=== PATIENT | female | born 1995 | race Caucasian/White ===

== ENCOUNTER 2017-05-01 23:14 | Emergency (ER) | payer BC ==
[~2017-05-01] VITALS: Ht 165.1 cm; Wt 105.3 kg
[2017-05-01 23:16] VITALS: TEMP 36.4; Ht 165.1 cm; Wt 105.3 kg
--- NOTE | 2017-05-01 23:48 | EMERGENCY ROOM VISIT NOTE ---
History First contact with patient: 23:21 Chief Complaint: EAR PAIN Stated Complaint: BLOODY EAR AND RINGING History of Present Illness The patient is a 22 year old female who presents to the Emergency Room with complaints of an injury to the right ear. The patient states that she tripped and fell, striking her right ear on the corner of a table. She states that she sustained a laceration to the ear and it has been bleeding. She rates her discomfort a 4/10. She denies any other injuries. She denies loss of consciousness. She denies headache or nausea. Review of Systems A complete 10 point review of systems was reviewed with the patient with pertinent positives and negatives as per history of present illness. All else were negative. Social History Smoking Status: Never Smoker Current/Historical Medications No Active Prescriptions or Reported Meds Physical Exam Vital Signs Date Time Temp Pulse Resp B/P (MAP) Pulse Ox O2 Delivery O2 Flow Rate FiO2 05/01/17 23:52 90 18 128/93 98 05/01/17 23:16 36.4 94 18 136/92 98 Room Air Physical Exam VITALS: Vitals are noted on the nurse's note and reviewed by myself. Vital signs stable. GENERAL: This is a 22-year-old female, in no acute distress, nondiaphoretic, well-developed well-nourished. SKIN: There is a 2 cm non-gaping laceration to the right helix. There is no active bleeding. HEAD: Normocephalic atraumatic. EARS: External auditory canals clear, tympanic membranes pearly monteiro without erythema or effusion bilaterally. EYES: Pupils equal round and reactive to light and accommodation. NEURO: Patient was alert and oriented to person place and time. Medical Decision & Procedures Medical Decision The patient was evaluated as above. She has a small, non-gaping laceration to the helix. Dermabond was applied to the laceration. There were no other concerning findings. Conservative measures were discussed with the patient. She verbalized understanding was discharged home in good condition. Medication Reconcilliation Current Medication List: was personally reviewed by me Blood Pressure Screening Patient's blood pressure: Normal blood pressure Impression Primary Impression: Laceration of ear Departure Information Dispostion Home / Self-Care Condition GOOD Prescriptions No Active Prescriptions or Reported Meds Referrals No Doctor, Assigned (PCP) Patient Instructions ED Laceration Facial Skin Glue, My [facility] Additional Instructions The glue will fall off on its own in 3-4 days. Do not apply any ointments or lotions to the area. For pain control, you can use the following [id number] medicines (if >12 yo): - Regular strength (325mg/tab) Tylenol (acetaminophen) 2 tabs every 4-6 hours as needed. Do not exceed 12 tablets in a 24 hour period. Avoid taking more than 4 grams (4000 mg) of Tylenol per day. This includes any other sources of acetaminophen you may take on a regular basis. - Regular strength (200 mg/tab) Advil (ibuprofen) 1-2 tabs every 4-6 hours as needed. Do not exceed a dose of 3200 mg per day. Problem Qualifiers Primary Impression: Laceration of ear Encounter type: initial encounter Laterality: right Qualified Codes: S01.311A - Laceration without foreign body of right ear, initial encounter
[2017-05-01 23:52] VITALS: BP 128/93; PULSE 90; O2SAT 98
== END 2017-05-01 23:53 | disposition home or self-care (01) ==
LOC: C.EDB 23:16 → C.EDC 23:53
DX: S01.311A Laceration without foreign body of right ear, initial encounter (principal); W19.XXXA Unspecified fall, initial encounter

== ENCOUNTER 2018-03-04 20:45 | Emergency (ER) | payer BC, OTHER ==
[~2018-03-04] VITALS: Ht 165.1 cm; Wt 108.9 kg
[2018-03-04 20:51] VITALS: TEMP 36.8; Ht 165.1 cm; Wt 108.9 kg
[2018-03-04] MEDS ORDERED: IBUPROFEN 600 MG TAB PO STA (21:03)
--- NOTE | 2018-03-04 21:24 | DIAGNOSTIC IMAGING REPORT ---
R WRIST MIN 3 VIEWS ROUTINE CLINICAL HISTORY: Ronnie GALLARDO wrist pain pain COMPARISON: None. DISCUSSION: The bones and joint spaces appear intact. There is no evidence of fracture, dislocation or bony disease. Potential lucency on the AP projection traversing the distal capitate. This, however appears represent overlap artifact based on the oblique projections. No significant pronator or fat pad sign. No significant edematous change. IMPRESSION: No acute process. The above report was generated using voice recognition software. It may contain grammatical, syntax or spelling errors. Electronically signed by: Damon Lee M.D. 03/04/2018 9:23 PM Dictated Date/Time: 03/04/2018 9:22 PM
[2018-03-04 21:47] VITALS: BP 138/88; PULSE 82; O2SAT 99
--- NOTE | 2018-03-04 23:00 | EMERGENCY ROOM VISIT NOTE ---
ED Visit Note First contact with patient: 20:57 Chief Complaint: Right wrist pain. History of Present Illness: Ms. Barragan is a 22-year-old white female who ambulates into the ED complaining of right wrist pain. Historically patient reports she has had a previous left wrist fracture but does remember a right wrist injury as a child but does not remember it as a fracture. Patient reports approximately 15 minutes before she arrived in the emergency department she was standing on a chair to close a cabinet. She reports losing her balance and falling on her outstretched right hand to the ground. She reports at the time of the fall she immediately had pain in the right wrist and remembers hearing or feeling a popping sensation. Currently she is complaining of a sharp and achy pain over the distal aspect of the radius and ulna. She rates her discomfort 6/10. Her pain is nonradiating. Her pain worsens with palpation in all movements of the wrist. She has not identified any alleviating factors related to the pain. She has not taken any medications for pain prior to arrival at the hospital. Associated with her pain she reports she has a minimal discomfort in the anterior aspect of the right shoulder over the humeral head. She denies any associated elbow pain, proximal forearm pain, hand pain, finger pain, hand/finger weakness/numbness/ tingling. Review of Systems: As noted above in history of present illness. Past Medical History: As previously noted and seasonal allergies. Current Medications: Patient denies. Allergies to Medications: Sulfa. Social History: Patient is currently employed; she feels safe in her home environment; she denies tobacco use and admits to alcohol use. Physical Examination: Vital Signs: Date Time Temp Pulse Resp B/P (MAP) Pulse Ox O2 Delivery O2 Flow Rate FiO2 03/04/18 21:47 82 20 138/88 99 Room Air 03/04/18 20:51 36.8 90 18 142/99 98 Room Air GENERAL: 22-year-old female in mild distress due to pain, nontoxic-appearing, afebrile and hemodynamically stable. NEUROLOGICAL: Awake, alert and oriented to person, place and time. Answering questions appropriately and following commands. SKIN: Warm, dry and pink. No soft tissue trauma noted. RIGHT UPPER EXTREMITY: No gross bony deformity. Minimal tenderness over the anterior aspect of the humeral head without bony deformity, bony crepitus, swelling or ecchymosis. Full range of motion of the glenohumeral joint. No tenderness over the clavicle, acromion clavicular joint or scapula. No tenderness throughout the distal shaft of the humerus, elbow or proximal forearm. Mild tenderness over the distal radius and ulna without bony deformity , bony crepitus, swelling or ecchymosis. No tenderness throughout the carpals or any anatomical snuffbox. No tenderness throughout the rest of the hands or fingers. She was able to do full range of motion in pronation and supination of the forearm, flexion, extension and radial and ulnar deviation of the wrist and flexion and extension of all fingers. Throughout the hand the skin was warm and pink and capillary refill is brisk. She is able to distinguish light sensations to all dermatomes of the hands and fingers. ED Course: Patient is assessed as noted above. Patient's medication list was reviewed. Patient was given ice for pain and comfort and 600 mg of ibuprofen. Right Wrist X-Rays: Were read by myself and the radiologist showing no acute fractures or dislocations. I did note as well as the radiologist there appeared to be a potential lucency on the AP picture over the distal capitate. This was not present on other pictures of the wrist and the radiologist felt that this was a overlap artifact. Patient was placed in a wrist immobilizer. Patient was educated about today's findings and instructed on her treatment plan ; she verbalized understanding and agreement with this plan. Clinical Impression: Right wrist pain. Disposition: Patient discharged home in stable condition; prior to departure she was reassessed and subjectively reported she was feeling better and rated her discomfort 4/10. Plan: Comfort measures including rest, ice, splint use and ibuprofen and acetaminophen were discussed with the patient. Patient was signed off of work for 3 days. Patient was encouraged to follow-up with assessment specialist if no better in 6 -7 days. Patient was encouraged return the ED for worsening/uncontrolled pain, uncontrolled swelling, hand/finger weakness/numbness/tingling or any new/ concerning symptoms.
== END 2018-03-04 21:50 | disposition home or self-care (01) ==
LOC: C.EDB 20:46 → C.EDD 21:50
DX: M25.531 Pain in right wrist (principal); Z88.2 Allergy status to sulfonamides